=== PATIENT | female | born 1990 | race Caucasian/White ===

== ENCOUNTER 2020-09-05 15:06 | Emergency (ER) | payer BC, SELFPAY ==
[2020-09-05 15:13] VITALS: BP 117/72; PULSE 135; RESP 22; TEMP 36.1; O2SAT 96
--- NOTE | 2020-09-05 15:59 | ECG_ITS ---
Measurements Intervals [place] Rate: 81 P: 52 WI: 130 QRS: 31 QRSD: 84 T: 55 QT: 302 QTc: 352 Interpretive Statements SINUS OR ECTOPIC ATRIAL TACHYCARDIA ATRIAL PREMATURE COMPLEXES BASELINE ARTIFACT- I, II, III, AVR, AVL, AVF, V1-V6 ABNORMAL ECG Electronically Signed On 09-10-2020 8:29:12 CDT by Sharath Bee D.O.
[2020-09-05] MEDS: LORazepam INJ (*CRX) 2 MG/ML VIAL IM (16:24)
[2020-09-05 16:40] LABS: Add Urine Microscopic? YES; Amorphous Sediment Urine Few; Appearance Urine Cloudy (Clear); Bacteria Urine Trace /hpf; Bilirubin Urine Negative (Negative); Blood Urine Negative (Negative); Color Urine Amber (Yellow); Glucose Urine UA Negative (Negative); Ketones Urine Trace mg/dL (Negative); Leukocyte Esterase Ur Negative LEU/UL (Negative); Mucus Urine Heavy /lpf; Nitrate Urine Negative (Negative); Protein Urine Negative (Negative); RBC Urine 0-2 /hpf (0-2); Specific Grav Ur 1.029 (1.001-1.035); Squamous Epithelial Cell Urine Few /hpf (Few)
[2020-09-05 16:52] LABS: Barbiturate Screen Urine Negative (Negative); Benzodiazepines Screen Urine Negative (Negative)
[2020-09-05 17:04] LABS: Cannabinoid Screen Urine Positive (Negative); Cocaine Screen Urine Negative (Negative); Methadone Screen Urine Negative (Negative); Opiate Screen Urine Negative (Negative); Phencyclidine Screen Urine Negative (Negative)
--- NOTE | 2020-09-05 17:15 | ED.MEDCLEAR ---
HPI - Medical Clearance General Chief complaint: Medical Clearance Stated complaint: needs cleared for critical access hospital Time Seen by Provider: 09/05/20 15:28 Source: patient Mode of arrival: other (PD) Limitations: no limitations History of Present Illness HPI Narrative: Patient is a 30 year old female who presents for fit for confinement by PD. Patient has a history of drug abuse and a psychiatric history. Patient is uncooperative and states she needs Xanax. Patient reports taking Xanax daily and using methamphetamine daily. Patient also uses marijuana. Patient denies all complaints. Patient is requesting Xanax at this time. PD at bedside. MD complaint: medical clearance requested Related Information Home Medications Medication Instructions Recorded Confirmed alprazolam 09/05/20 09/05/20 minocycline 09/05/20 quetiapine 09/05/20 Allergies Allergy/AdvReac Type Severity Reaction Status Date / Time carbamazepine Allergy Unknown Unknown Verified 09/05/20 15:28 Review of Systems Review of Systems: Narrative: CONSTITUTIONAL: Denies fever, chills, or sweats. EYES: Denies visual changes, redness, or discharge. ENT: Denies rhinorrhea, congestion, sore throat, or otalgia. CARDIOVASCULAR: Denies chest pain, palpitations, or edema. RESPIRATORY: Denies cough or dyspnea. GASTROINTESTINAL: Denies abdominal pain, nausea, vomiting, or diarrhea. GENITOURINARY: Denies dysuria or hematuria. SKIN: Denies rash or itching. MUSCULOSKELETAL: Denies back pain, joint pain, or myalgia. NEUROLOGIC: Denies headache, numbness, dizziness, or weakness. PSYCHIATRIC: Reports anxiety. [facility] Past Medical History Medical History Anxiety Bipolar disorder Depression Drug addiction Gestational diabetes Schizophrenia Viral meningitis as a child Family History Family History (Updated 09/05/20 @ 17:23 by AMANDA Bolden) Other Arthritis Diabetes mellitus Hypertension Social History Social History Gender identity (if verbalized by the patient): Female Comments At the time of signature, I have reviewed and agree with nursing past medical, surgical, social, and family history unless otherwise noted. Please see nursing chart for further information. There is no relevant family history pertinent to the presenting complaint. All history was obtained from patient's previous chart as patient is uncooperative at this time. Exam Narrative: Exam Narrative: GENERAL: Anxious, well nourished, no acute distress HEAD: Normocephalic, atraumatic. EYES: EOMI. No redness or drainage. Conjunctiva are normal. ENT: Mucous membranes pink and moist. CHEST: No respiratory distress. Clear to auscultation. HEART: Regular rate and rhythm. No murmur appreciated. Normal peripheral pulses. GI: Soft, nontender without rebound, or guarding. MUSCULOSKELETAL: No bony tenderness. EXTREMITIES: Normal range of motion. No edema. SKIN: Multiple areas of healing skin lesions NEURO: No focal deficits. Alert and oriented x3. Gait steady. PSYCH: Anxious and uncooperative. Course Course Emergency Course: Patient given 2mg of Ativan IM for anxiety. Patient refusing lab work at this time. Patient again requesting Xanax. Discussed with patient that we are unable to give her Xanax. Patient refusing all other interventions at this time. Discussed with Dr. Desai who agrees that if patient is uncooperative and staff are in danger, patient is clear for discharge as treatment and interventions have been refused. Vital Signs Vital signs: Vital Signs Temperature 36.1 C L 09/05/20 15:13 Pulse Rate 135 H 09/05/20 15:13 Respiratory Rate 22 H 09/05/20 15:13 Blood Pressure 117/72 09/05/20 15:13 Pulse Oximetry 96 09/05/20 15:13 Temperature 36.1 C L 09/05/20 15:13 Pulse Rate 110 H 09/05/20 17:50 Respiratory Rate 20 09/05/20 17:50 Blood Pressure 144/79 H 09/05/20 17:50 Pulse Oximetry 100
[2020-09-05 17:20] VITALS: BP 116/65; PULSE 84; RESP 18; O2SAT 99
[2020-09-05 17:26] LABS: Amphetamine Screen Urine Positive (Negative)
[2020-09-05 17:50] VITALS: BP 144/79; PULSE 110; PULSE 118; RESP 16; RESP 20; O2SAT 100; O2SAT 97
== END 2020-09-05 18:30 ==
PROVIDERS: Emergency Provider Nurse Practitioner; PCP Family Medicine
DX: F19.10 Other psychoactive substance abuse, uncomplicated (principal); F41.9 Anxiety disorder, unspecified; F31.9 Bipolar disorder, unspecified; F20.9 Schizophrenia, unspecified; I49.1 Atrial premature depolarization; R00.0 Tachycardia, unspecified
CPT/HCPCS: 51701; 80307; 81001; 93005; 99284; J2060

== ENCOUNTER 2021-10-11 16:45 | Inpatient (IN) | payer BC, SELFPAY ==
[2021-10-11] VITALS (14 sets, daily range): BP systolic 69–145; BP diastolic 55–126; PULSE 85–159; RESP 14; TEMP 36.8; O2SAT 97; BMI 30.2
[2021-10-11 18:17] LABS: Basophils Absolute Auto 0.1 K/mm3 (0.0-0.1); Basophils Percent Auto 0.4 % (0.2-1.2); Eosinophils Absolute Auto 0.2 K/mm3 (0-0.3); Eosinophils Percent Auto 1.1 % (0-4.4); Hematocrit 34.3 % (37.0-47.0); Hemoglobin 11.5 g/dL (12.0-15.0); Immature Granulocyte Absolute 0.08 K/mm3 (0.00-0.031); Immature Granulocyte Percent A 0.4 % (0-0.5); Lymphocytes Absolute Auto 3.04 K/mm3 (0.9-3.2); Lymphocytes Percent Auto 15.6 % (18.3-44.2); Mean Corpuscular HGB Conc 33.5 g/dl (32-36); Mean Corpuscular Hemoglobin 28.6 pg (26-34); Mean Corpuscular Volume 85.3 fl (80-100); Monocytes Percent Auto 5.3 % (2.6-8.5); Neutrophils Percent Auto 77.2 % (45.5-73.1); Platelet Count Result 189 k/mm3 (150-375); Red Blood Count 4.02 M/mm3 (4.2-5.4); Red Cell Distribution Width 13.4 % (11.5-14.5); White Blood Count 19.5 K/mm3 (4.5-10.0)
--- NOTE | 2021-10-11 18:17 | WPDANESEPPF ---
Anes - Initial Pre Proc Eval Procedure: labor epidural Date/Time: 10/11/21 18:17 Surgeon: Tea Kendrick MD Pre Op Diagnosis: Contractions Patient Data Age: 31 Gender: F Height: Weight: Last Vital Signs Pulse 123 H 10/11/21 17:01 BP 145/83 H 10/11/21 17:01 Allergies Allergy/AdvReac Type Severity Reaction Status Date / Time carbamazepine Allergy Unknown Unknown Verified 09/05/20 15:28 Home Medications Medication Instructions Recorded Confirmed Type alprazolam 0.5 mg tablet 09/05/20 09/05/20 History minocycline 100 mg capsule 09/05/20 History quetiapine 100 mg tablet 09/05/20 History Laboratory Tests 10/11/21 10/11/21 10/11/21 17:03 17:03 17:03 WBC Pending RBC Pending Hgb Pending Hct Pending MCV Pending MCH Pending MCHC Pending RDW Pending Plt Count Pending MPV Pending Immature Gran % (Auto) Pending Neut % (Auto) Pending Lymph % (Auto) Pending [place] % (Auto) Pending Eos % (Auto) Pending Baso % (Auto) Pending Lymph # (Auto) Pending [place] # (Auto) Pending Eos # (Auto) Pending Baso # (Auto) Pending Abs Immat Gran (auto) Pending Absolute Neuts (auto) Pending Absolute Nucleated RBC Pending Nucleated RBC % Pending Urine Opiates Screen Urine Methadone Screen Ur Barbiturates Screen Ur Phencyclidine Scrn Ur Amphetamine Screen U Benzodiazepines Scrn Urine Cocaine Screen U Cannabinoids Screen RPR Pending Hep Bs Antigen HIV 1&2 Ab/P24 Ag 4thGn Pending Rubella IgG Antibody 10/11/21 10/11/21 10/11/21 17:03 17:03 17:03 WBC RBC Hgb Hct MCV MCH MCHC RDW Plt Count MPV Immature Gran % (Auto) Neut % (Auto) Lymph % (Auto) [place] % (Auto) Eos % (Auto) Baso % (Auto) Lymph # (Auto) [place] # (Auto) Eos # (Auto) Baso # (Auto) Abs Immat Gran (auto) Absolute Neuts (auto) Absolute Nucleated RBC Nucleated RBC % Urine Opiates Screen Pending Urine Methadone Screen Pending Ur Barbiturates Screen Pending Ur Phencyclidine Scrn Pending Ur Amphetamine Screen Pending U Benzodiazepines Scrn Pending Urine Cocaine Screen Pending U Cannabinoids Screen Pending RPR Hep Bs Antigen Pending HIV 1&2 Ab/P24 Ag 4thGn Rubella IgG Antibody Pending Patient hx anesthesia problems: none Family hx anesthesia problems: none Results Review: All pre-operative results and documents have been reviewed as part of the pre-operative evaluation. PMFSH Past Medical History Medical History Anxiety Bipolar disorder Depression Drug addiction Gestational diabetes Schizophrenia Viral meningitis as a child Family History Family History Other Arthritis Diabetes mellitus Hypertension Social History Social History Gender identity (if verbalized by the patient): Female Comments pt IV drug abuser, hep c positive Anes - Eval Final PreProcedure Day of Procedure 10/11/21 18:17 Heart: regular rate and rhythm Lungs: normal air movement Airway: Mallampati scale Neurological: alert and
--- NOTE | 2021-10-11 18:44 | PM.OBPRVD ---
OB - Delivery Note Procedure Delivery date: 10/11/21 Procedure: Intrapartal Events: Other (none) Induction method: None Delivery monitor: External FHT and External Uterine Route of delivery: Episiotomy description: None Laceration Description: None Specimen: Yes Quantitative Blood Loss (ml): 120 Anesthesia type: None Disposition: Floor Complications: none Baby Date of : 10/11/21 Weeks of gestation at delivery: 40 score one minute: 8 score five minutes: 8
[2021-10-11 18:48] LABS: Barbiturate Screen Urine Negative (Negative); Benzodiazepines Screen Urine Positive (Negative)
--- NOTE | 2021-10-11 18:48 | WPDHPUPDATE1 ---
History and Physical Update Update Date/Time: 10/11/21 18:48A 31-year-old multiparous female presents in labor. She is a known to have renal care. No care with us or the hospital. Unknown gestational age but believed to be term. IV drug user, recent methamphetamine use. Presented in delivered quickly. Was 5 cm upon admission and quickly became complete and had a poorly controlled delivery where she was moving in the bed violently. Unknown medical, surgical, medication history. History and Physical has been reviewed, including an updated exam of the patient. There are NO changes in the patient's condition. Risks, benefits, and alternatives have been discussed and questions answered. Patient agrees to proceed with procedure.
[2021-10-11 18:50] LABS: Cannabinoid Screen Urine Positive (Negative); Cocaine Screen Urine Negative (Negative); Methadone Screen Urine Negative (Negative); Opiate Screen Urine Negative (Negative); Phencyclidine Screen Urine Negative (Negative)
[2021-10-11 19:11] LABS: Amphetamine Screen Urine Positive (Negative)
[2021-10-11 19:13] LABS: Rubella IgG Antibody 4.1 IU/ML
[2021-10-11 19:17] LABS: Hepatitis B Surface Antigen Negative (Negative)
[2021-10-11 19:25] LABS: HIV 1/2 Ab P24 Ag Result Negative (Negative)
[2021-10-11] MEDS: IBUPROFEN 600 MG TABLET PO (19:33)
[2021-10-11] MEDS: OXYTOCIN 30 UNITS/NS 500 ML 30 UNITS/500 ML BAG 999 UNITS IV CONT (19:36)
[2021-10-12 00:35] VITALS: BP 140/91; PULSE 95; RESP 16; TEMP 36.9; O2SAT 98
--- NOTE | 2021-10-12 03:22 | PC.NURSE ---
Patient transferred to post room #286 via ( w/c ) at 2118. Support person present. transferred to [facility]. Plans to give baby up for adoption. Oriented to unit, room, information board, rooming in, admission packet and security measures. Patient verbalizes understanding.
[2021-10-12 05:30] VITALS: BP 113/80; PULSE 86; RESP 16; TEMP 36.9; O2SAT 99
[2021-10-12] MEDS: IBUPROFEN 600 MG TABLET PO ×2 (05:41→15:54)
[2021-10-12 07:20] VITALS: BP 128/52; PULSE 98; RESP 20; TEMP 36.9; O2SAT 100
[2021-10-12 07:33] LABS: Rapid Plasma Reagin Non-Reactive (NonReactive)
--- NOTE | 2021-10-12 08:40 | PM.OBPNVD ---
OB - PN: Subj Subjective Date/time seen: 10/12/21 08:40 Patient comments: no complaints, pain well controlled, incisional pain, tolerating diet and flatus present OB - PN: Obj Data Labs CBC & Chem 7: 10/11/21 17:03 Labs: Laboratory Results - last 24 hr 10/11/21 10/11/21 10/11/21 17:03 17:03 17:03 WBC 19.5 H RBC 4.02 L Hgb 11.5 L Hct 34.3 L MCV 85.3 MCH 28.6 MCHC 33.5 RDW 13.4 Plt Count 189 MPV 12.0 H Immature Gran % (Auto) 0.4 Neut % (Auto) 77.2 H Lymph % (Auto) 15.6 L [place] % (Auto) 5.3 Eos % (Auto) 1.1 Baso % (Auto) 0.4 Lymph # (Auto) 3.04 [place] # (Auto) 1.0 H Eos # (Auto) 0.2 Baso # (Auto) 0.1 Abs Immat Gran (auto) 0.08 H Absolute Neuts (auto) 15.0 H Absolute Nucleated RBC 0.0 Nucleated RBC % 0.0 Urine Opiates Screen Urine Methadone Screen Ur Barbiturates Screen Ur Phencyclidine Scrn Ur Amphetamine Screen U Benzodiazepines Scrn Urine Cocaine Screen U Cannabinoids Screen RPR Non-reactive Hep Bs Antigen HIV 1&2 Ab/P24 Ag 4thGn Negative Rubella IgG Antibody Blood Type Antibody Screen 10/11/21 10/11/21 10/11/21 17:03 17:03 17:03 WBC RBC Hgb Hct MCV MCH MCHC RDW Plt Count MPV Immature Gran % (Auto) Neut % (Auto) Lymph % (Auto) [place] % (Auto) Eos % (Auto) Baso % (Auto) Lymph # (Auto) [place] # (Auto) Eos # (Auto) Baso # (Auto) Abs Immat Gran (auto) Absolute Neuts (auto) Absolute Nucleated RBC Nucleated RBC % Urine Opiates Screen Urine Methadone Screen Ur Barbiturates Screen Ur Phencyclidine Scrn Ur Amphetamine Screen U Benzodiazepines Scrn Urine Cocaine Screen U Cannabinoids Screen RPR Hep Bs Antigen Negative HIV 1&2 Ab/P24 Ag 4thGn Rubella IgG Antibody 4.1 L Blood Type O Positive Antibody Screen Negative 10/11/21 17:03 WBC RBC Hgb Hct MCV MCH MCHC RDW Plt Count MPV Immature Gran % (Auto) Neut % (Auto) Lymph % (Auto) [place] % (Auto) Eos % (Auto) Baso % (Auto) Lymph # (Auto) [place] # (Auto) Eos # (Auto) Baso # (Auto) Abs Immat Gran (auto) Absolute Neuts (auto) Absolute Nucleated RBC Nucleated RBC % Urine Opiates Screen Negative Urine Methadone Screen Negative Ur Barbiturates Screen Negative Ur Phencyclidine Scrn Negative Ur Amphetamine Screen Positive A U Benzodiazepines Scrn Positive A Urine Cocaine Screen Negative U Cannabinoids Screen Positive A RPR Hep Bs Antigen HIV 1&2 Ab/P24 Ag 4thGn Rubella IgG Antibody Blood Type Antibody Screen OB - PN A/P Plan day: 1 Plan: routine care Comments: routine care, fentanyl at 8, methamphetamine addict, patient beginning to get into withdrawal. The clinical social worker to give her help with resources. Worried about her leaving prematurely. Time Spent With Patient Time: Total time spent is greater than 50% in coordination of care (as documented) at patient's floor/unit and/or counseling patient: Exam Const: General: comfortable, no acute distress and alert Resp: Effort & Inspection: normal respiratory effort Auscultation: no crackles, no rales and no rhonchi Cardio: Rate: regular rate Heart sounds: no click, no murmurs and no rubs GI: Inspection: non-distended GI Palp: No Tenderness to palpation present (GI) Auscultation: normal bowel sounds Other: Incision - CDI Extrem: General: normal to inspection, no pedal edema and no calf tenderness
--- NOTE | 2021-10-12 10:31 | PCCCNOTE ---
Addendum entered by Lucretia Gracia 10/13/21 16:13: 10/13/21: Pt. left AMA, she left floor before DCFS could interview. Pawan with DCFS will follow up with pt. in community and will follow up with [facility]. Addendum entered by Lucretia Gracia 10/12/21 13:46: 1340: CC spoke with Abigail, Fabrication Lead at [facility] [phone]. Abigail has been updated on pt. and baby's social history. CC faxed court documents to Abigail. Original Note: CC met with pt. this morning to discuss discharge planning. Pt. was a walk-in to [facility] to deliver baby. She had no care that we know of and could not tell staff how far along her was. On admission, pt. tested positive for Amphetamines, Benzos, and THC. Pt. confirms she has an active history of IV drug use. This is pt.'s 4th baby, she does not have custody of her other children and states that she has an open DCFS case. Pt. is currently living with her friend and states that she has the home ready for baby but does not want custody. Pt. confirms she has a car seat and safe place for baby to sleep. Pt. states she was looking into adoption for baby but is unsure if the father of the baby would like to be involved. Baby's father was not involved during the due to pt.'s drug use. Pt.'s baby had to be transferred to [facility] due to respiratory distress, pt. has shown concern for baby's well being. Pt. took drug/alcohol rehab resources from staff during hospitalization and states she will pursue methadone treatment once again. Pt. understands CC will make report to DCFS regarding drug use, she has no questions or concerns at this time. CC completed online report, intake ID: [id number]. Will follow.
[2021-10-12 12:05] VITALS: BP 136/77; PULSE 92; RESP 16; TEMP 36.6; O2SAT 100
[2021-10-12 15:54] VITALS: BP 116/58; PULSE 85; RESP 16; TEMP 36.7; O2SAT 99
--- NOTE | 2021-10-12 18:46 | PC.NURSE ---
1000 Sophy from Care Coordination here. 1041 Faxed UDS results to [facility] per their request. 1055 Deisi Sheryl Jarrell It Architecture Analyst hand delivered a Consent to Interim Order for Adoption of copy put on hard chart. 1058 Called Sophy from and informed her of this and let her know that Deisi wanted to speak with her. 1110 Sophy here to speak with Deisi. 1429 Deisi returned with the actual Court Order for Temporary Custody and release from Hospital. She stated she will also deliver one to [facility].
--- NOTE | 2021-10-12 19:10 | PC.NURSE ---
Call received from Sisi Kunz, with DCFS, per telephone regarding patient update and potential discharge date and time. Sisi stated she will visit patient tomorrow, 10/13/21 approximately around 1000. Discussed conversation with primary nurse, Jillian Kidd RN.
[2021-10-12 19:45] VITALS: BP 152/82; PULSE 88; RESP 16; TEMP 36.6; O2SAT 99
--- NOTE | 2021-10-13 08:09 | PM.OBPNVD ---
OB - PN: Subj Subjective Date/time seen: 10/13/21 08:09 Patient comments: no complaints, pain well controlled and tolerating diet OB - PN: Obj Data Labs CBC & Chem 7: 10/11/21 17:03 OB - PN A/P Plan day: 2 Plan: routine care and discharge home Time Spent With Patient Time: Total time spent is greater than 50% in coordination of care (as documented) at patient's floor/unit and/or counseling patient: Exam Const: General: comfortable and no acute distress Resp: Effort & Inspection: normal respiratory effort Auscultation: no rales, no rhonchi and no wheezes Cardio: Rate: regular rate Heart sounds: no click, no murmurs and no rubs GI: GI Palp: Yes Soft to palpation and No Tenderness to palpation present (GI) Auscultation: normal bowel sounds Extrem: General: normal to inspection, no pedal edema and no calf tenderness
--- NOTE | 2021-10-13 08:09 | PM.OBDSVD ---
DS: Admitting Diagnosis Discharge Date October 13, 2021 Admitting Diagnosis Term , opioid dependency, labor DS: Discharge Diagnosis Discharge Diagnosis (1) Opioid dependence: Code(s): F11.20 - Opioid dependence, uncomplicated Status: Acute (2) Term delivered: Code(s): O80 - Encounter for full-term uncomplicated delivery Status: Acute OB - DS: Summary OB Procedures : None and Other (No care) OB Procedures Intrapartum: Spontaneous Vag Delivery OB Procedures: : None Time Spent with Patient Time attestation: Total time spent providing and/or coordinating discharge services: Discharge Plan Discharge Attending physician on discharge: Tea Kendrick Discharging Clinician: Tea Kendrick Patient Disposition: Home, Self-Care Activity: pelvic rest Diet: regular Patient Instructions: Antibiotic Form Stand Alone Forms: General Discharge Information Follow-up/Referrals: Tea Kendrick MD [Physician] - Discharge Medications: Continued minocycline 100 mg capsule quetiapine 100 mg tablet alprazolam 0.5 mg tablet Date of admission: 10/11/21 16:45 Primary Care Provider: Amando,Indigo Edward Admitting Provider: Tea Kendrick Attending physician on admission: Tea Kendrick Condition: Stable
--- NOTE | 2021-10-13 09:48 | PC.NURSE ---
Addendum entered by Nancy Mir RN 10/13/21 10:03: first time should be 0740 Original Note: 0755 tried to get assessment done and pt was outside getting some fresh air. 0845 still outside. 0915 still outside 0945 still outside
--- NOTE | 2021-10-13 10:16 | PC.NURSE ---
0950 UA stated all of pts personal belongings are gone from room. 0956 Called security to see if pt was outside? 1005 Security stated that they looked and did not see her. 1008 Reported this to Mariella Burr assistant counsel RN. 1010 roof bolting coal miner called Aby MCKEON. She will have Security do a more in depth search. 1010 Called Care Coordination Spoke to Leonila. She stated to report this to Sisi Lezama. with DCFS they will take it from here. 1020 Sisi Giordano with DCFS here. All of the above was reported to her. Copies of the Court Orders for temporary custody and Attorneys business card was given to her. 1026 Aby called back and stated that Security viewed the surveillance records and could see this pt get into a car and ride away. 1027 This was reported to Sisi from DCFS.
--- NOTE | 2021-10-13 13:37 | PC.NURSE ---
1336 Called pts phone number [phone] and got a voice mail stating that they are not accepting calls on this phone at this time.
--- NOTE | 2021-10-13 13:41 | PC.NURSE ---
[address] Kendrick and informed him that his pt left without an 0800 assessment and no D/C paperwork. He V/U'd.
== END 2021-10-13 07:30 | disposition home or self-care (01) | DRG 560 ==
LOC: ANHLDR 17:05 → ANHOB2 21:22
PROVIDERS: Admitting Provider Obstetrics & Gynecology; PCP Family Medicine; Visit Provider Obstetrics & Gynecology
DX: O99.324 Drug use complicating childbirth (principal); Z37.0 Single live birth; Z3A.38 38 weeks gestation of pregnancy; F15.20 Other stimulant dependence, uncomplicated; O69.81X0 Labor and delivery complicated by cord around neck, without compression, not applicable or unspecified
CPT/HCPCS: 36415; 80307; 85025; 86592; 86703; 86762; 86850; 86900; 86901; 87340; A9270; G0432; J2590